=== PATIENT | female | born 1965 | race Caucasian/White ===

== ENCOUNTER 2020-11-23 17:53 | Inpatient (IN) | payer MEDICARE, SELFPAY ==
[~2020-11-23] VITALS: Ht 165.1 cm; Wt 77.1 kg
[~2020-11-23 17:53] MED LIST: ALBUTEROL1.25 MG/3 INH; ASPIRIN CHEWABL81 MG PO; ATORVASTATIN CA80 MG PO; BENTYL 20MG TAB20 MG PO; BUSPAR 10MG10 MG PO; CELEXA40 MG PO; CHANTIX1 MG PO; CILOSTAZOL50 MG PO; CYMBALTA 30 MG30 MG PO; FLEXERIL 10 MG10 MG PO; IMDUR ER TAB 3030 MG PO; JANUVIA100 MG PO; LEVEMIR100 UNIT/1 SQ; LEVOFLOXACIN500 MG PO; LOPRESSOR 25 MG25 MG PO; LYRICA100 MG PO; LYRICA75 MG PO; METFORMIN HCL1000 MG PO; MIRALAX PO; MIRALAX17 GM PO; NORCO 7.5-3251 EACH PO; NORTRIPTYLINE H25 MG PO; NOVOLOG SQ; NOVOLOG100 UNIT/1 SQ; OZEMPIC 2 MG/1.5 ML SC; PAMELOR 25 MG C25 MG PO; PAMELOR25 MG PO; PLAVIX 75 MG TA75 MG PO; PREDNISONE 50 M50 MG PO; PROAIR HFA8.5 GM INH; PROTONIX 40 MG40 M1 PO; PROTONIX40 MG PO; RANITIDINE HCL150 MG PO; SENOKOT8.6 MG PO; TESSALON PERLE100 MG PO; TRAMADOL HCL50 MG PO; TRICOR145 MG PO; TUMERSAID TABL1 EACH PO; Voltaren Gel 1 % TOP; WOMEN'S DAILY1 EACH PO; ZOFRAN ODT 4 MG4 MG SL; ZOFRAN4 MG PO
[2020-11-23 19:58] LABS: HEMOGLOBIN 15.3 gm/dl (12.3-15.3); RED BLOOD COUNT 5.39 M/UL (4.00-5.10); WHITE BLOOD COUNT 22.4 K/UL (4.5-11.0)
[2020-11-23 20:09] LABS: BUN/CREATININE RATIO 24 (0-10)
[2020-11-24] MEDS ORDERED: PAMELOR 25 MG C25 MG PO (00:13)
[2020-11-24] MEDS ORDERED: LOPRESSOR 25 MG25 MG PO (00:14)
[2020-11-24] MEDS ORDERED: LINZESS290 MCG PO (00:17)
[2020-11-24] MEDS ORDERED: BUTALB-ACETAMI1 EAC1 PO (00:20)
[2020-11-24 04:26] LABS: HEMOGLOBIN 12.4 gm/dl (12.3-15.3); RED BLOOD COUNT 4.45 M/UL (4.00-5.10); WHITE BLOOD COUNT 10.9 K/UL (4.5-11.0)
[2020-11-24 04:46] LABS: BUN/CREATININE RATIO 20 (0-10)
[2020-11-25 04:14] LABS: HEMOGLOBIN 12.6 gm/dl (12.3-15.3); RED BLOOD COUNT 4.54 M/UL (4.00-5.10); WHITE BLOOD COUNT 9.4 K/UL (4.5-11.0)
[2020-11-25 04:25] LABS: BUN/CREATININE RATIO 14 (0-10)
[2020-11-25] MEDS ORDERED: STOOL SOFTENER250 MG PO (10:53)
[2020-11-25] MEDS ORDERED: LEVOFLOXACIN750 MG PO (10:53)
[2020-11-25] MEDS ORDERED: FLAGYL500 MG PO (10:53)
[2020-11-29 11:15] LABS: ADENOVIRUS F 40/41 Not Detected (Not Detected); ASTROVIRUS Not Detected (Not Detected); C DIFFICILE TOXIN A/B Not Detected (Not Detected); CAMPYLOBACTER Not Detected (Not Detected); CRYPTOSPORIDIUM Not Detected (Not Detected); CYCLOSPORA CAYETANENSIS Not Detected (Not Detected); ENTAMOEBA HISTOLYTICA Not Detected (Not Detected); ENTEROAGGREGATIVE E COLI Not Detected (Not Detected); ENTEROPATHOGENIC E COLI Not Detected (Not Detected); ENTEROTOXIGENIC E COLI Not Detected (Not Detected); GIARDIA LAMBLIA Not Detected (Not Detected); NOROVIRUS GI/GII Not Detected (Not Detected); PLESIOMONAS SHIGELLOIDES Not Detected (Not Detected); ROTAVIRUS A Not Detected (Not Detected); SALMONELLA Not Detected (Not Detected); SAPOVIRUS Not Detected (Not Detected); SHIGA-TOXIN-PRODUCING E COLI Not Detected (Not Detected); SHIGELLA/ENTEROINVASIVE E COLI Not Detected (Not Detected); VIBRIO Not Detected (Not Detected); VIBRIO CHOLERAE Not Detected (Not Detected); YERSINIA ENTEROCOLITICA Not Detected (Not Detected)
== END 2020-11-25 13:10 | disposition home or self-care (01) | DRG 872 ==
LOC: ER1 17:53 → M/S 21:58 → CDU 21:58 → M/S 11-24 07:45
PROVIDERS: Family Medicine; Internal Medicine; Physician Assistant Medical; ADMIT Internal Medicine Infectious Disease
DX: A41.9 Sepsis, unspecified organism (principal); A09 Infectious gastroenteritis and colitis, unspecified; K92.1 Melena; E87.2 Acidosis; E11.65 Type 2 diabetes mellitus with hyperglycemia; I10 Essential (primary) hypertension; F41.9 Anxiety disorder, unspecified; F32.9 Major depressive disorder, single episode, unspecified; I25.10 Atherosclerotic heart disease of native coronary artery without angina pectoris; Z20.822 Contact with and (suspected) exposure to COVID-19; F17.210 Nicotine dependence, cigarettes, uncomplicated; J44.9 Chronic obstructive pulmonary disease, unspecified; K57.90 Diverticulosis of intestine, part unspecified, without perforation or abscess without bleeding; E11.51 Type 2 diabetes mellitus with diabetic peripheral angiopathy without gangrene; Z95.1 Presence of aortocoronary bypass graft; Z98.890 Other specified postprocedural states; Z79.4 Long term (current) use of insulin; Z95.828 Presence of other vascular implants and grafts; Z80.8 Family history of malignant neoplasm of other organs or systems
CPT/HCPCS: 36415; 80048; 80053; 81001; 82272; 82962; 83605; 83690; 83735; 85025; 85027; 87507; 93005; 96365; 96375; 96376; 99285; J1956; J2270; J2405; J2543; J7030; Q9967; U0002

== ENCOUNTER 2021-01-04 21:57 | Emergency (ER) | payer MEDICARE, SELFPAY ==
[~2021-01-04 21:57] MED LIST changes: +BUTALB-ACETAMI1 EAC1 PO; +FLAGYL500 MG PO; +LEVOFLOXACIN750 MG PO; +LINZESS290 MCG PO; +STOOL SOFTENER250 MG PO
[2021-01-04 23:22] LABS: HEMOGLOBIN 13.7 gm/dl (12.3-15.3); RED BLOOD COUNT 4.91 M/UL (4.00-5.10); WHITE BLOOD COUNT 10.2 K/UL (4.5-11.0)
[2021-01-04 23:45] LABS: BUN/CREATININE RATIO 20 (0-10)
[2021-01-05] MEDS ORDERED: ZOFRAN4 MG PO (02:07)
== END 2021-01-05 02:45 | disposition home or self-care (01) ==
LOC: ER1 21:57
PROVIDERS: Family Medicine
DX: R10.9 Unspecified abdominal pain (principal); R11.0 Nausea; I48.91 Unspecified atrial fibrillation; E11.9 Type 2 diabetes mellitus without complications; E78.5 Hyperlipidemia, unspecified; I10 Essential (primary) hypertension; Z90.89 Acquired absence of other organs; Z95.1 Presence of aortocoronary bypass graft; F17.210 Nicotine dependence, cigarettes, uncomplicated
CPT/HCPCS: 80053; 81001; 82150; 83690; 85025; 96374; 96375; 99284; J2270; J2405; J7030; Q9967

== ENCOUNTER → 2021-02-09 | Outpatient (CLI) | payer MEDICARE, OTHER | LOC: MAMO 01-12 11:30 | DX: Z12.31 Encounter for screening mammogram for malignant neoplasm of breast (principal) | CPT/HCPCS: 77063; 77067 ==